=== PATIENT | male | born 1940 | race Caucasian/White ===

== ENCOUNTER 2019-12-01 16:55 | Emergency (ER) | payer MEDICARE, BC ==
[2019-12-01] MEDS ORDERED: niCARdipine HCl 25 MG in Sodium Chloride 0.9% 250 ML IV SCH (17:30)
[2019-12-01] MEDS ORDERED: Sodium Chloride 0.9% 1,000 ML IV SCH (17:30)
--- NOTE | 2019-12-01 17:30 | EDM.PDOC ---
ED HPI GENERAL MEDICAL PROBLEM - General Chief Complaint: Neuro Symptoms/Deficits Stated Complaint: [place] Time Seen by Provider: 12/01/19 17:12 Source of Information: Reports: Patient History Limitations: Reports: No Limitations - History of Present Illness INITIAL COMMENTS - FREE TEXT/NARRATIVE: 79-year-old male presents to the ED per [facility]. He presents primarily with stroke symptoms primarily with dysarthric speech. Dependent down an exact time frame when this was first appreciated. The patient states shortly after lunch which would've been around noon. The when she came stated it was around 1400 hrs. today. He was exercising this morning on his stationary bicycle in the basement and he developed a bad headache and therefore stopped what he was doing. He came up and ended up eating some dinner and then sat an easy chair the rest afternoon and did not have a nap. To walk his states that he was not off balance and he has not fallen or hit his head. The history suggests that he was on Eliquis 5 mg twice a day up until November [id number] was discontinued in preparation for transurethral resection of his prostate on . The procedure was carried out at [facility] by Dr. Carbajal department of urology. The patient was discharged home the same day. He currently has a Mccarty catheter in place with good zulema colored drainage to the urine and very minimal clots appreciated by the patient. 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 He apparently has to. Vena caval filters in place since that time to prevent reocclusion of his lower extremities. Left leg remains swollen a good portion of the time with 2+ pitting edema and he states the right leg for the most part is normal in size. Problem identified in the emergency room was significant hypertension blood pressure 184/117 initially. Unclear if any medications being used for hypertension control or change recently. He had a really bad headache this morning which curtailed his ability to ride his spelled by in the basement and stopped his activity. The headache at this time is very minimal. Onset: Today Onset Date: 12/01/19 Onset Time: 12:00 (Patient says about 12:00 and the says 1400 hrs. today he developed symptoms of dysarthric speech.) Duration: Hour(s):, Getting Worse Location: Reports: Upper Extremity, Right (Early minimal right upper extremity numbness tingling and slight weakness. The patient is right-hand dominant.), Other (Start strict speech) Quality: Reports: Other Severity: Mild (He has only a very minimal headache at this time.) Improves with: Reports: None Worsens with: Reports: None Context: Reports: Other (Recently taken off L Thomason in preparation for transurethral resection of his prostate I believe November 24 and has not been restarted on this medication. He is in chronic atrial fibrillation. Aspect that he has probably embolized clot out of his hard to cause CVA with speech impairment at this time). Denies: Activity, Exercise, Lifting, Sick Contact, Trauma Associated Symptoms: Reports: Headaches, Malaise, Weakness. Denies: Confusion, Chest Pain, Cough, cough w sputum, Diaphoresis, Fever/Chills (Ad headache this morning which is now rated as 1 out of 10.), Loss of Appetite, Nausea/Vomiting, Rash, Seizure, Shortness of Breath, Syncope Treatments DIRECTOR OF RADIOLOGY: Reports: Other (see below) (None.) - Related Data Allergies Allergy/AdvReac Type Severity Reaction Status Date / Time Iodinated Contrast Media Allergy Cannot Verified 12/01/19 17:29 [Iodinated Contrast Media - Remember IV Dye] Penicillins Allergy Cannot Verified 12/01/19 17:29 Remember Sulfa (Sulfonamide Allergy Hives Verified 12/01/19 17:29 Antibiotics) Home Meds: Home Meds Levothyroxine 125 mcg PO ACBREAKFAST 05/04/15 [History] Ferrous Sulfate 325 mg PO DAILY 06/16/19 [History] Furosemide [Lasix] 20 mg PO DAILY 06/16/19 [History] Multivitamin with Minerals [Hair, Skin and Nails] 1 each PO DAILY 06/16/19 [ History] Oxybutynin 2.5 mg PO TID PRN 06/16/19 [History] Polyethylene Glycol 3350 [MiraLAX] 17 gm PO DAILY PRN 06/16/19 [History] atorvaSTATin [Lipitor] 20 mg PO DAILY 06/16/19 [History] Past Medical History HEENT History: Reports: Impaired Vision, Other (See Below) Other HEENT History: wears glasses Cardiovascular History: Reports: Afib, Blood Clots/VTE/DVT, High Cholesterol, SOB on Exertion Genitourinary History: Reports: Prostate Disorder, Other (See Below) Other Genitourinary History: Uses mccarty catheter since prostate surgery on Musculoskeletal History: Reports: Arthritis, Back Pain, Chronic Neurological History: Reports: Vertigo Psychiatric History: Reports: Depression Endocrine/Metabolic History: Reports: Hypothyroidism, Obesity/BMI 30+ Hematologic History: Reports: Other (See Below) (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 requiring interventional radiology to thrombolyze clots in both lower extremities to prevent recurrent chronic damage to both lower extremities in May of this year.) - Infectious Disease History Infectious Disease History: Reports: Chicken Pox, Rheumatic Fever - Past Surgical History HEENT Surgical History: Reports: Cataract Surgery Cardiovascular Surgical History: Reports: None Male Surgical History: Reports: Prostatectomy Endocrine Surgical History: Reports: Thyroidectomy Neurological Surgical History: Reports: None Musculoskeletal Surgical History: Reports: Carpal Tunnel, Knee Replacement Social & Family History - Family History Family Medical History: Noncontributory - Caffeine Use Caffeine Use: Reports: Coffee, Soda Caffeine Use Comment: Mt Dew 1 bottle per day, 3-4 cups coffee daily - Living Situation & Occupation Living situation: Reports: , with Spouse (Resides in [place] in their own home) Occupation: Retired ED ROS GENERAL - Review of Systems Review Of Systems: See Below Constitutional: Reports: Malaise, Fatigue, Decreased Appetite, Weight Loss ( Since surgery. Possibly a pound or 2). Denies: Fever, Chills HEENT: Reports: Other (Has had bilateral cataract extractions and intraocular lens placements.) Respiratory: Reports: No Symptoms. Denies: Wheezing, Pleuritic Chest Pain, Cough, Sputum Cardiovascular: Reports: Blood Pressure Problem, Dyspnea on Exertion, Edema ( Both lower extremities but much worse on the left as compared to the right since he had clots in his legs thrombolyzed by interventional radiology.), Palpitations (Occasional.). Denies: Chest Pain, Claudication, Orthopnea Endocrine: Reports: Fatigue ( Sometimes when palpitations as he is in chronic atrial fib.) GI/Abdominal: Reports: Constipation, Decreased Appetite : Reports: Other (Was having problems with bleeding per urethra on a recurrent basis due to bladder hemorrhage due to severe prostatic hypertrophy. He thus recently underwent a transurethral resection of his prostate on e by Dr. 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 He has bilateral arthritis in his knees and hips low back neck and shoulders. Both knees have been replaced in the past.) Skin: Reports: Bruising (Uses fairly easily when he's on the Eliquis.) Neurological: Reports: No Symptoms Psychiatric: Reports: No Symptoms (Until today.) Hematologic/Lymphatic: Reports: No Symptoms Immunologic: Reports: No Symptoms ED EXAM, NEURO - Physical Exam Exam: See Below Exam Limited By: Physical Impairment (Patient has mild to moderate dysarthria but speech is understandable.) General Appearance: Alert, WD/WN, Anxious (Mildly anxious.) Eye Exam: Bilateral Eye: Normal Inspection (I lateral cataract extractions and intraocular lens implants.), PERRL (Gaze palsy no diplopia.), Other Ears: Normal TMs Nose: Normal Inspection Throat/Mouth: Normal Inspection, Normal Lips, Normal Teeth, Normal Oropharynx, Other Head Exam: Atraumatic (Uvula but remains in the midline), Normocephalic, Other ( Nick signs of any facial or head trauma) Neck: Normal Inspection, Full Range of Motion (With some pain at full flexion and extension.), Limited Range of Motion (Loss of 5 flexion and 10 extension.) , Tender Lateral (Tender bilaterally.) Respiratory/Chest: No Respiratory Distress, Lungs Clear, Normal Breath Sounds, No Accessory Muscle Use Cardiovascular: No Murmur, No Rub, Bradycardia, Irregularly Irregular (Patient is in controlled atrial fibrillation with a mean rate of around 55/m. Rate on the ECG is from 55-80/m). No: Normal Peripheral Pulses, No Edema, No Gallop GI/Abdominal: Normal Bowel Sounds, Soft, Non-Tender, No Organomegaly, No Mass, Pelvis Stable (Male) Exam: Other ( is a small umbilical hernia that doesn't bother him. He said previous left inguinal hernia repair. Patient has an indwelling Mccarty catheter draining to left lower extremity leg bag. Urine is zulema in color without blood) Neurological: Alert, Normal Mood/Affect, Normal Dorsiflexion, Oriented x 3, Other (He is able to hold both legs above the gurney for greater than 6 seconds without any problem. Similarly he was able to hold his right arm for about 5 seconds before it started to drift slightly downwards. His have a left facial droop which is very mild. Still able to fill both cheeks with air.). No: CN II- XII Intact, No Motor/Sensory Deficits, Babinski, Difficulty Walking DTR: 0: Achilles (R), Achilles (L), 1+: Bicep (R), Bicep (L), Patella (R), Patella (L) Back Exam: Normal Inspection, Decreased Range of Motion Extremities: Other (Lorna has very minimal edema in his right lower extremity 1+ or less and he is wearing compression stockings bilaterally. He has a total right knee replacement on both sides. He has 2-3+ pitting edema on the left lower extremity. He has severe deformity swelling of his left ankle due to arthritis and pain with dorsiflexion and flexion. It is more difficult for him to hold this leg up above gravity due to pain in his hip and ankle. His leg bag is attached to his left leg from his indwelling Mccarty catheter.) Skin Exam: Warm, Dry, Intact, Normal Color, No Rash EKG INTERPRETATION EKG Date: 12/01/19 Time: 17:34 Rhythm: A-Fib (With rate of 55-80/m) Rate (Beats/Min): 55 [place]: Normal P-Wave: Absent QRS: Other (I'll decreased voltage in the limb leads.) ST-T: Other (Nonspecific T-wave flattening in lead aVL.) QT: Normal EKG Interpretation Comments: Abnormal ECG Course - Vital Signs Last Recorded V/S: Last Vital Signs Temp 36.4 C 12/01/19 17:12 Pulse 94 12/01/19 18:45 Resp 24 H 12/01/19 18:45 BP 189/93 H 12/01/19 18:45 Pulse Ox 95 12/01/19 18:45 - Orders/Labs/Meds Orders: Active Orders 24 hr Category Date Time Status EKG Documentation Completion [RC] STAT Care 12/01/19 17:27 Active Chest 1V Frontal [CR] Stat Exams 12/01/19 17:27 Taken CBC WITH MANUAL DIFF [HEME] Stat Lab 12/01/19 18:20 Results Labs: Laboratory Tests 12/01/19 12/01/19 12/01/19 Range/Units 18:20 18:20 18:20 WBC 5.35 (4.23-9.07) K/mm3 RBC 4.07 L (4.63-6.08) M/mm3 Hgb 12.6 L D (13.7-17.5) gm/dl Hct 38.6 L (40.1-51.0) % MCV 94.8 H (79.0-92.2) fl MCH 31.0 (25.7-32.2) pg MCHC 32.6 (32.2-35.5) g/dl RDW Std Deviation 52.1 H (35.1-43.9) fL Plt Count 220 (163-337) K/mm3 MPV 8.6 L (9.4-12.3) fl PT 10.9 (9.7-12.0) SECONDS INR 1.00 APTT 26 (22-31) SECONDS D-Dimer, Quantitative 1.33 H (0.19-0.50) mg/L Sodium 138 (136-145) mEq/L Potassium 4.2 (3.5-5.1) mEq/L Chloride 103 (98-107) mEq/L Carbon Dioxide 25 (21-32) mEq/L Anion Gap 14.2 (5-15) BUN 24 H (7-18) mg/dL Creatinine 1.2 (0.7-1.3) mg/dL Est Cr Clr Drug Dosing 53.23 mL/min Estimated GFR (MDRD) 59 (>60) mL/min BUN/Creatinine Ratio 20.0 H (14-18) Glucose 93 (83-115) mg/dL Calcium 8.9 (8.5-10.1) mg/dL Magnesium 1.9 (1.8-2.4) mg/dl Total Bilirubin 0.5 (0.2-1.0) mg/dL AST 17 (15-37) U/L ALT 24 (16-63) U/L Alkaline Phosphatase 51 (46-116) U/L Troponin I < 0.017 (0.00-0.056) ng/mL C-Reactive Protein 0.3 (<1.0) mg/dL NT-Pro-B Natriuret Pep (0-450) pg/mL Total Protein 7.3 (6.4-8.2) g/dl Albumin 3.4 (3.4-5.0) g/dl Globulin 3.9 gm/dL Albumin/Globulin Ratio 0.9 L (1-2) 12/01/19 Range/Units 18:20 WBC (4.23-9.07) K/mm3 RBC (4.63-6.08) M/mm3 Hgb (13.7-17.5) gm/dl Hct (40.1-51.0) % MCV (79.0-92.2) fl MCH (25.7-32.2) pg MCHC (32.2-35.5) g/dl RDW Std Deviation (35.1-43.9) fL Plt Count (163-337) K/mm3 MPV (9.4-12.3) fl PT (9.7-12.0) SECONDS INR APTT (22-31) SECONDS D-Dimer, Quantitative (0.19-0.50) mg/L Sodium (136-145) mEq/L Potassium (3.5-5.1) mEq/L Chloride (98-107) mEq/L Carbon Dioxide (21-32) mEq/L Anion Gap (5-15) BUN (7-18) mg/dL Creatinine (0.7-1.3) mg/dL Est Cr Clr Drug Dosing mL/min Estimated GFR (MDRD) (>60) mL/min BUN/Creatinine Ratio (14-18) Glucose (83-115) mg/dL Calcium (8.5-10.1) mg/dL Magnesium (1.8-2.4) mg/dl Total Bilirubin (0.2-1.0) mg/dL AST (15-37) U/L ALT (16-63) U/L Alkaline Phosphatase (46-116) U/L Troponin I (0.00-0.056) ng/mL C-Reactive Protein (<1.0) mg/dL NT-Pro-B Natriuret Pep 814 H (0-450) pg/mL Total Protein (6.4-8.2) g/dl Albumin (3.4-5.0) g/dl Globulin gm/dL Albumin/Globulin Ratio (1-2) Meds: Medications Discontinued Medications Generic Name Dose Route Start Last Admin Trade Name Freq PRN Reason Stop Dose Admin Sodium Chloride 1,000 mls @ 100 mls/hr 12/01/19 17:30 12/01/19 18:01 Normal Saline IV 100 mls/hr ASDIRECTED CHEO Administration Nicardipine HCl 25 mg/ Sodium 260 mls @ 26 mls/hr 12/01/19 17:30 12/01/19 18: 01 Chloride IV 2.5 mg/hr ASDIRECTED CHEO 26 mls/hr Administration 2.5 MG/HR - Radiology Interpretation Free Text/Narrative:: 79-year-old male presents to the ED with neurological deficit. Question as to when this was first appreciated either somewhere between 1200 hrs. and 1400 hrs. today. The patient says 1200 hrs. and the 's is 1400 hrs. He has dysarthric speech and mild left facial weakness. He can hold his right arm above gravity for about 5 seconds before he developed some degree of mild pronator drift towards the midline. He had mild sustained nystagmus on right lateral gaze. No trouble swallowing tongue movement and uvula is or normal. No diplopia and extraocular muscles were normal. His right leg above gravity for greater than 10 seconds. The left he could hold for about 6 seconds aggravated by pain in his left ankle and left hip. Also his leg bag is attached to his urinary catheter is on this leg. The leg bag is nearly full of urine. Patient has mild ptosis of his right upper eyelid. From the sounds of things this is chronic. Plan patient be taken medially to the CT suite per stroke protocol - Re-Assessments/Exams Free Text/Narrative Re-Assessment/Exam: 12/01/19 17:42: CT of the brain on my assessment reveals no intracranial hemorrhage and no mass effect. There is diffuse senescent changes with mild prominent convex to days and sulci. There is noted atherosclerotic desiccation within the left vertebral vessel and within the carotid siphon. Bone windows reveal no acute sinusitis mastoid sinuses are also clear. On return from the CT suite he remains hypertensive with a BP of 178/117. I will therefore be starting him on Cardura pain drip starting at 2.5 mg per hour and titrating upwards as needed. He is appreciably under good deal of stress at this point time. 12/01/19 18:00: Have spoken with neurologist at [facility] to the 1 call nurse. I also spoke with Dr. Markell Mueller in the emergency department was accepted care of this patient. We identified the transport will be per helicopter since they can fly at this time and staff is being summoned. His neurological deficit dysarthria did not change while in the ED. It is hypothesized that he is likely a clot in his heart from chronic atrial fibrillation and off of his Eliquis for the last 7 days. Suspect intra atrial thrombus with embolism to the brain causing CVA. Of note there is notation in his allergies that he is allergic to iodinated contrast media. It's unclear if this was a problem during the summer months when he underwent interventional radiology evaluation and treatment of multiple clots in both lower extremities. His needs to be considered prior to proposed CTA. Of note over read of the CT of the brain by radiology does not show any intracranial hemorrhage or abnormalities in the brain either. 12/01/19 18:45: At the time of discharge his blood pressure was reportedly 150 /80 on Nicardapine drip at 2.5 mg per hour. Labs are pending. 12/01/19 19:13 Hematology reveals a normal white count at 5.35. Differential pending. Hemoglobin is 12.6 with hematocrit of 38.6. Platelet count 220,000. PT is 10.9 with an INR 1.00. PTT is 26. D-dimer mildly elevated at 1.33. 138 with a potassium of 4.2. Chloride 103 with a bicarbonate 25. Anion gap is 14.2. BUNs 24 the cranium to 1.2. Glucose is 93 with a calcium of 8.9. Magnesium is 1.9. Liver function is normal. Troponin I is less than 0.017. C-reactive protein is 0.3. BNP is mildly elevated at 814. Total protein is 7.3 with an albumin fraction of 3.4. Report will be sent to [facility] emergency department in care of Dr. Markell Mueller Departure - Departure Time of Disposition: 19:14 Disposition: DC/Tfer to Acute Hospital 02 Condition: Serious Clinical Impression: S/P TURP, Chronic a-fib CVA (cerebral vascular accident) Qualifiers: CVA mechanism: embolism Precerebral and cerebral artery: middle cerebral artery Laterality of affected vessel: left Qualified Code(s): I63.412 - Cerebral infarction due to embolism of left middle cerebral artery - Discharge Information *PRESCRIPTION DRUG MONITORING PROGRAM REVIEWED*: Not Applicable *COPY OF PRESCRIPTION DRUG MONITORING REPORT IN PATIENT [place]: Not Applicable Forms: ED Department Discharge Additional Instructions: Patient transferred to [facility] in [place] per helicopter service. It is believed the patient is outside therapeutic window to benefit from thrombolytic therapy and his deficit was considered fairly minor at the time of exam with mild dysarthric speech but no significant extremity weakness. He was difficult to pinpoint exactly when neuro symptoms developed as the patient says 1200 hrs. and the says 1400 hrs. He arrived in the ED and a proximally 1720 hrs. He therefore did not receive thrombolytic therapy. Patient will be sent to the stroke unit for CT angiogram to see if he is amenable to interventional treatment Sepsis Event Note - Evaluation Sepsis Screening Result: No Definite Risk - Focused Exam Vital Signs: Vital Signs Temp Pulse Resp BP Pulse Ox 12/01/19 18:45 94 24 H 189/93 H 95 12/01/19 17:12 36.4 C 69 18 179/100 H 96 Date Exam was Performed: 12/01/19 Time Exam was Performed: 19:13 - My Orders Last 24 Hours: My Active Orders 12/01/19 17:27 EKG Documentation Completion [RC] STAT Chest 1V Frontal [CR] Stat 12/01/19 18:20 CBC WITH MANUAL DIFF [HEME] Stat - Assessment/Plan Last 24 Hours: My Active Orders 12/01/19 17:27 EKG Documentation Completion [RC] STAT Chest 1V Frontal [CR] Stat 12/01/19 18:20 CBC WITH MANUAL DIFF [HEME] Stat
--- NOTE | 2019-12-01 17:45 | CT ---
Head CT Technique: Multiple axial sections through the brain were obtained. Intravenous contrast was not utilized. Comparison: No prior intracranial imaging is available. Findings: Ventricles along with basal cisterns and sulci over the convexities are mildly prominent. No abnormal parenchymal densities are seen. No evidence of intracranial hemorrhage. No midline shift or mass effect is seen. Atherosclerotic calcification is noted within the left vertebral vessel and within the carotid siphon. Bone window settings were reviewed. Visualized paranasal sinuses show nothing acute. Mastoid sinuses also show nothing acute. No acute calvarial abnormality is appreciated. Impression: 1. Mild generalized atrophy and other senescent change. 2. No acute intracranial abnormality is appreciated on noncontrast head CT exam. Diagnostic code #2 This report was dictated in [place] Standard Time
[2019-12-01 19:01] VITALS: BP 189/93; PULSE 94
--- NOTE | 2019-12-03 07:23 | CR ---
Chest: Portable view of the chest was obtained. Comparison: Previous chest CT study of 06/27/19, no prior chest x-ray. Heart size appears within normal limits for portable technique. Tortuous thoracic aorta is noted. Lungs show no definite acute parenchymal change. Old healed fracture is noted within the right 4th rib. Severe degenerative change is noted within both shoulders. Impression: 1. Findings as noted above. 2. Nothing acute is appreciated on portable chest x-ray. Diagnostic code #2 This report was dictated in [place] Standard Time
== END 2019-12-01 18:45 ==
LOC: JD.ED 16:55
DX: I63.412 Cerebral infarction due to embolism of left middle cerebral artery (principal); I48.20 Chronic atrial fibrillation, unspecified; E78.00 Pure hypercholesterolemia, unspecified; M19.90 Unspecified osteoarthritis, unspecified site; F32.9 Major depressive disorder, single episode, unspecified; E03.9 Hypothyroidism, unspecified; E66.9 Obesity, unspecified; Z68.31 Body mass index [BMI] 31.0-31.9, adult; Z90.79 Acquired absence of other genital organ(s); Z88.0 Allergy status to penicillin; Z88.2 Allergy status to sulfonamides; Z91.041 Radiographic dye allergy status; Z79.899 Other long term (current) drug therapy
CPT/HCPCS: 36415; 70450; 71045; 80053; 83735; 83880; 84484; 85007; 85027; 85379; 85610; 85730; 86140; 93005; 96365; 99285; J7030; J7050; 93010